=== PATIENT | female | born 1980 | race Caucasian/White ===

== ENCOUNTER 2017-06-18 10:27 | Outpatient (CLI) | payer OTHER ==
--- NOTE | 2017-06-18 16:23 | NM ---
RADIONUCLIDE HEPATOBILIARY SCAN WITH GALLBLADDER EJECTION FRACTION: 06/18/17 HISTORY: Right upper quadrant pain. FINDINGS: early images show physiologic uptake of radiotracer throughout the hepatic parenchyma. Gallbladder is imaged at 38 minutes. Uptake is apparent within the small bowel at 21 minutes. After administration of 8 oz oral fatty meal, there is gradual excretion of radiotracer from the gallbladder to the small bowel. Ejection fraction is calculated at 36%. IMPRESSION: 1. No evidence of common duct or cystic duct obstruction. 2. Borderline gallbladder ejection fraction of 36%. Clinical correlation regarding other signs a nd symptoms of chronic gallbladder dyskinesis is required. POS: IJEOMA
== END 2017-06-18 10:28 | disposition home or self-care (01) ==
LOC: NM 10:27
PROVIDERS: ATTEND Surgery
DX: R10.11 Right upper quadrant pain (principal)
CPT/HCPCS: 78227; A9537

== ENCOUNTER 2017-06-24 10:59 | Outpatient (CLI) | payer OTHER ==
[2017-06-24 12:19] LABS: #Basophils 0.1 thou/uL (0.0-0.2); #Eosinphils 0.1 thou/uL (0.0-0.7); #Lymphocytes 2.1 thou/uL (1.20-3.40); #Monocytes 0.3 thou/uL (0.11-0.59); #Neutrophils 3.8 thou/uL (1.40-6.50); %Basophils 1.4 % (0.0-1.0); %Eosinophils 1.3 % (0.0-10.0); %Monocytes 4.8 % (0.0-10.0); %Neutrophils 59.4 % (42.0-75.0); Hemoglobin 15.3 g/dL (12.0-16.0); Mean Corpuscular HGB CONC 34.5 g/dL (32.0-36.0); Mean Corpuscular Hemoglobin 31.7 pg (27.0-31.0); Mean Platelet Volume 9.8 fL (7.4-10.4); Platelet Count 161 thou/uL (130-400); RBC Distribution Width 11.1 % (11.5-14.5); Red Blood Cell (RBC) Count 4.83 mill/uL (4.20-5.40); White Blood Cell (WBC) Count 6.4 thou/uL (4.8-10.8)
[2017-06-24 12:38] LABS: ALT (SGPT) 21 U/L (8-55); AST (SGOT) 22 U/L (5-34); Albumin 4.7 g/dL (3.5-5.0); Alkaline Phosphatase 103 U/L (40-150); Anion Gap 12 mmol/L (10-20); BUN (Urea Nitrogen) 6 mg/dL (7.0-18.7); Bilirubin, Direct 0.2 mg/dL (0.1-0.3); Bilirubin, Total 0.5 mg/dL (0.2-1.2); Calc. Creatinine Clearance 0 mL/min (70-130); Calcium 9.8 mg/dL (7.8-10.44); Carbon Dioxide 23 mmol/L (22-29); Chloride 106 mmol/L (98-107); Estimated GFR-MDRD Greater than 90; Glucose 85 mg/dL (70-105); Potassium 4.1 mmol/L (3.5-5.1); Protein, Total 8.3 g/dL (6.0-8.3); Sodium 137 mmol/L (136-145)
== END 2017-06-24 11:00 | disposition home or self-care (01) ==
LOC: LABBT 10:59
PROVIDERS: ATTEND Surgery
DX: Z01.812 Encounter for preprocedural laboratory examination (principal); K82.8 Other specified diseases of gallbladder

== ENCOUNTER 2017-06-25 10:08 | Day surgery (SDC) | payer OTHER ==
[2017-06-24 11:10] VITALS: BMI 22.8
[2017-06-25] MEDS ORDERED: CEFAZOLIN/Water 2 GM/20 ML SYRINGE ONE (10:58)
[2017-06-25] MEDS ORDERED: Midazolam HCl 2 mg/2 ml Vial ONE (11:14)
[2017-06-25] MEDS ORDERED: Bupivacaine/Epinephrine 0.25% 30 ML VIAL ONE (12:04)
[2017-06-25] MEDS ORDERED: Fentanyl 250 MCG/5 ML VIAL ONE (12:27)
[2017-06-25] MEDS ORDERED: Levofloxacin 500 mg/D5W 100 ml Premix Bag ONE (12:34)
[2017-06-25] MEDS ORDERED: Fentanyl 100 MCG/2 ML VIAL ONE (13:16)
[2017-06-25] MEDS ORDERED: HYDROmorphone 0.5 MG/0.5 ML SYRINGE ONE ×3 (13:39→14:21)
--- NOTE | 2017-06-25 13:43 | OP ---
DATE OF PROCEDURE: 06/24/2017 PREOPERATIVE DIAGNOSIS: Chronic biliary dyskinesia. POSTOPERATIVE DIAGNOSIS: Chronic biliary dyskinesia. PROCEDURE: Laparoscopic cholecystectomy. SURGEON: Suleiman Montanez M.D. ANESTHESIA: General. ESTIMATED BLOOD LOSS: Minimal. COMPLICATIONS: None. SPECIMEN: Gallbladder. FINDINGS: Chronic cholecystitis. PROCEDURE IN DETAIL: The patient was taken to the Operating Room and laid supine on the Operating Kym m table. After general anesthetic was obtained, the abdomen was prepped and draped in a sterile fashi on. A curved incision was made below the umbilicus. Cautery was used to dissect down to the umbilical fascia. Umbilical fascia was incised and held up using a Waldemar. The abdominal cavity was entered us ing a Krista clamp. Holding stitch of Vicryl was placed on each side of the fascia. Camacho trocar was placed. High-flow pneumoperitoneum was obtained. An upper midline 5-mm port and two right upper quadr ant 5-mm ports were placed under direct camera visualization. The gallbladder was retracted from the gallbladder fossa. The peritoneum of the gallbladder was opened anteriorly and posteriorly. The criti myrna view triangle was seen showing only the cystic duct and cystic artery branching from medial to la teral. There were no other branching structures. Two clips were placed proximally on the cystic duct and one laterally. It was cut using laparoscopic scissors. The cystic artery was taken in the same wa y. Electrocautery was then used to dissect the gallbladder out of the gallbladder fossa. The gallblad jarvis was placed in an Endo catch bag and brought out through the Camacho. There was no bleeding or bile in the liver bed. The cystic duct stump and cystic artery stump were intact without evidence of extr avasation or bleeding. All port sites were infiltrated using local anesthesia. All ports were removed under camera visualization. Pneumoperitoneum was let down. The Vicryl was used to close the fascial defect below the umbilicus. All incisions were irrigated and closed using 4-0 Monocryl and DermaBond. The patient was en route to Recovery in stable condition. All instrument counts, needle counts and l ap counts were correct.
[2017-06-25] MEDS ORDERED: Promethazine HCl 25 MG/ML VIAL ONE (13:45)
[2017-06-25] MEDS ORDERED: Meperidine HCl/PF 25 MG/ML VIAL ONE (14:04)
[2017-06-25] MEDS ORDERED: PROPOFOL 200 MG/20 ML VIAL ONE (16:10)
[2017-06-25] MEDS ORDERED: Glycopyrrolate 0.2 MG/ML 5 ML SYRINGE ONE (16:10)
[2017-06-25] MEDS ORDERED: Dexamethasone 20 MG/5 ML VIAL ONE (16:10)
[2017-06-25] MEDS ORDERED: Lidocaine 1% PF 5 ML VIAL ONE (16:10)
== END 2017-06-25 15:15 | disposition home or self-care (01) ==
LOC: SDC 10:08
PROVIDERS: ATTEND Surgery
PROC: 0FT44ZZ Resection of Gallbladder, Percutaneous Endoscopic Approach (ICD-10-PCS; principal; 2017-06-25)
DX: K81.1 Chronic cholecystitis (principal); J45.909 Unspecified asthma, uncomplicated; E11.9 Type 2 diabetes mellitus without complications; F41.9 Anxiety disorder, unspecified; I27.20 Pulmonary hypertension, unspecified; Z88.1 Allergy status to other antibiotic agents; Z88.8 Allergy status to other drugs, medicaments and biological substances; Z98.890 Other specified postprocedural states
CPT/HCPCS: 88304; J1100; J1170; J1956; J2001; J2175; J2250; J2550; J2704; J3010